=== PATIENT | female | born 1985 | race Caucasian/White ===

== ENCOUNTER 2017-07-05 10:56 | Emergency (ER) | payer OTHER ==
[2017-07-05] MEDS ORDERED: ONDANSETRON 4 MG/2 ML VIAL IVP ONE (11:21)
[2017-07-05] MEDS ORDERED: NS 1,000 ML IV ONE (11:21)
[2017-07-05] MEDS ORDERED: HYOSCYAMINE SULFATE 0.125 MG TAB PO ONE (11:21)
[2017-07-05] MEDS ORDERED: MAG HYDROX/AL HYDROX/SIMETH 30 ML UDCUP PO ONE (11:21)
[2017-07-05] MEDS ORDERED: LIDOCAINE 2% VISCOUS 15 ML UDCUP PO ONE (11:21)
--- NOTE | 2017-07-05 11:21 | EDPHY ---
H & P Stated Complaint: hx ulcer increasing n/v epigstric pain over last few weeks Time Seen by Provider: 07/05/17 11:06 HPI/ROS: CHIEF COMPLAINT: Epigastric pain HISTORY OF PRESENT ILLNESS: The patient presents to the ED with a 1 day history of epigastric pain she attributes to peptic ulcer disease. She was diagnosed with this condition clinically several years ago. She did not undergo endoscopy. She has been having some mild symptoms of dyspepsia and epigastric pain over the past several weeks. The patient reports she developed several episodes of vomiting over the past 12 hours. There is no hematemesis. The patient is not had a history of melena. The patient complains of mild ongoing epigastric pain. REVIEW OF SYSTEMS: A comprehensive 10 point review of systems is otherwise negative aside from elements mentioned in the history of present illness. Source: Patient Exam Limitations: No limitations - Personal History LMP (Females 10-55): 15-21 Days Ago Current Tetanus/Diphtheria Vaccine: Unsure - Medical/Surgical History Hx Asthma: No Hx Chronic Respiratory Disease: No Hx Diabetes: No Hx Cardiac Disease: No Hx Renal Disease: No Hx Cirrhosis: No Hx Alcoholism: No Hx HIV/AIDS: No Hx Splenectomy or Spleen Trauma: No Other PMH: ulcer - Social History Smoking Status: Never smoked - Physical Exam Exam: General Appearance: Alert, no distress Eyes: Pupils equal and round no pallor or injection ENT, Mouth: Mucous membranes moist Respiratory: There are no retractions, lungs are clear to auscultation Cardiovascular: Regular rate and rhythm Gastrointestinal: Minimal epigastric tenderness to palpation Neurological: A&O, normal motor function, normal sensory exam, normal cranial nerves Skin: Warm and dry, no rashes Musculoskeletal: Neck is supple nontender Extremities: symmetrical, full range of motion Constitutional: Initial Vital Signs Temperature (C) 36.5 C 07/05/17 10:59 Heart Rate 94 07/05/17 10:59 Respiratory Rate 18 07/05/17 10:59 Blood Pressure 135/98 H 07/05/17 10:59 O2 Sat (%) 96 07/05/17 10:59 O2 Delivery Mode Room Air Allergies/Adverse Reactions: acetaminophen Allergy (Verified 07/05/17 10:58) codeine Allergy (Verified 07/05/17 10:58) Home Medications: Medication Instructions Recorded Ondansetron Odt [Zofran Odt] 4 mg PO Q4PRN PRN #20 tab 07/05/17 Medical Decision Making ED Course/Re-evaluation: The patient presents to the ED with minimal epigastric pain. The patient's laboratory studies are within normal limits her vital signs are stable. Her abdominal examination is reassuring. The patient was given a GI cocktail in the emergency department. Review of her laboratory studies demonstrate no evidence of hepatitis, pancreatitis, significant leukocytosis or . Urinalysis does demonstrate hematuria although the patient has no complaints of flank pain or symptoms suggestive of nephrolithiasis. Patient was re-evaluated at 12:00 p.m. She is feeling much better. Her abdominal pain is entirely resolved. Patient will be referred to our on-call primary care provider and hand spring repairer. She has been informed of the presence of asymptomatic microscopic hematuria and will have a repeat urinalysis performed through primary care in the next month. The patient is discharged home with customary aftercare instructions and return precautions. She will be given a prescription for Zofran. She is advised to begin ranitidine 150 mg twice daily. Differential Diagnosis: Differential diagnosis considered includes peptic ulcer disease, gastritis, dehydration, pancreatitis, cholecystitis, urinary tract infection, ectopic - Data Points Laboratory Results: Laboratory Results 07/05/17 11:15 07/05/17 11:15 07/05/17 07/05/17 07/05/17 11:15 11:15 11:15 WBC RBC Hgb Hct MCV MCH MCHC RDW Plt Count MPV Neut % (Auto) Lymph % (Auto) Russell % (Auto) Eos % (Auto) Baso % (Auto) Nucleat RBC Rel Count Absolute Neuts (auto) Absolute Lymphs (auto) Absolute Monos (auto) Absolute Eos (auto) Absolute Basos (auto) Absolute Nucleated RBC Immature Gran % Immature Gran # Sodium 141 mEq/L mEq/L (134-144) Potassium 4.1 mEq/L mEq/L (3.5-5.2) Chloride 104 mEq/L mEq/L (97-110) Carbon Dioxide 23 mEq/l mEq/l (22-31) Anion Gap 14 mEq/L mEq/L (8-16) BUN 10 mg/dL mg/dL (7-23) Creatinine 0.7 mg/dL mg/dL (0.6-1.0) Estimated GFR > 60 Glucose 85 mg/dL mg/dL (70-100) Calcium 9.5 mg/dL mg/dL (8.5-10.4) Total Bilirubin 0.5 mg/dL mg/dL (0.1-1.4) Conjugated Bilirubin 0.1 mg/dL mg/dL (0.0-0.5) Unconjugated Bilirubin 0.4 mg/dL mg/dL (0.0-1.1) AST 22 IU/L IU/L (14-46) ALT 33 IU/L IU/L (9-52) Alkaline Phosphatase 65 IU/L IU/L (38-126) Total Protein 7.0 g/dL g/dL (6.3-8.2) Albumin 4.4 g/dL g/dL (3.5-5.0) Lipase 87 IU/L IU/L (23-300) Beta HCG, Qual NEGATIVE Urine Color YELLOW Urine Appearance TURBID Urine pH 7.0 (5.0-7.5) Ur Specific Story 1.020 (1.002-1.030) Urine Protein NEGATIVE (NEGATIVE) Urine Ketones NEGATIVE (NEGATIVE) Urine Blood NEGATIVE (NEGATIVE) Urine Nitrate NEGATIVE (NEGATIVE) Urine Bilirubin NEGATIVE (NEGATIVE) Urine Urobilinogen NEGATIVE EU EU (0.2-1.0) Ur Leukocyte Esterase 1+ H (NEGATIVE) Urine RBC 25-50 /hpf H /hpf (0-3) Urine WBC Not Reported Ur Epithelial Cells TRACE /lpf /lpf (NONE-1+) Urine Mucus TRACE /lpf /lpf (NONE-1+) Urine Glucose NEGATIVE (NEGATIVE) 07/05/17 11:15 WBC 8.19 10^3/uL 10^3/uL (3.80-9.50) RBC 4.06 10^6/uL L 10^6/uL (4.18-5.33) Hgb 13.5 g/dL g/dL (12.6-16.3) Hct 38.5 % % (38.0-47.0) MCV 94.8 fL fL (81.5-99.8) MCH 33.3 pg pg (27.9-34.1) MCHC 35.1 g/dL g/dL (32.4-36.7) RDW 12.1 % % (11.5-15.2) Plt Count 243 10^3/uL 10^3/uL (150-400) MPV 9.7 fL fL (8.7-11.7) Neut % (Auto) 59.8 % % (39.3-74.2) Lymph % (Auto) 30.2 % % (15.0-45.0) Russell % (Auto) 8.3 % % (4.5-13.0) Eos % (Auto) 1.1 % % (0.6-7.6) Baso % (Auto) 0.5 % % (0.3-1.7) Nucleat RBC Rel Count 0.0 % % (0.0-0.2) Absolute Neuts (auto) 4.90 10^3/uL 10^3/uL (1.70-6.50) Absolute Lymphs (auto) 2.47 10^3/uL 10^3/uL (1.00-3.00) Absolute Monos (auto) 0.68 10^3/uL 10^3/uL (0.30-0.80) Absolute Eos (auto) 0.09 10^3/uL 10^3/uL (0.03-0.40) Absolute Basos (auto) 0.04 10^3/uL 10^3/uL (0.02-0.10) Absolute Nucleated RBC 0.00 10^3/uL 10^3/uL (0-0.01) Immature Gran % 0.1 % % (0.0-1.1) Immature Gran # 0.01 10^3/uL 10^3/uL (0.00-0.10) Sodium Potassium Chloride Carbon Dioxide Anion Gap BUN Creatinine Estimated GFR Glucose Calcium Total Bilirubin Conjugated Bilirubin Unconjugated Bilirubin AST ALT Alkaline Phosphatase Total Protein Albumin Lipase Beta HCG, Qual Urine Color Urine Appearance Urine pH Ur Specific Story Urine Protein Urine Ketones Urine Blood Urine Nitrate Urine Bilirubin Urine Urobilinogen Ur Leukocyte Esterase Urine RBC Urine WBC Ur Epithelial Cells Urine Mucus Urine Glucose Medications Given: Discontinued Medications Al Hydroxide/Mg Hydroxide (Maalox Susp) 30 ml PO ONCE ONE Stop: 07/05/17 11:22 Last Admin: 07/05/17 11:27 Dose: 30 ml Hyoscyamine Sulfate (Levsin, Hyomax-Sl) 0.25 mg PO ONCE ONE Stop: 07/05/17 11:22 Last Admin: 07/05/17 11:26 Dose: 0.25 mg Sodium Chloride (Ns) 1,000 mls @ 0 mls/hr IV EDNOW ONE; Wide Open PRN Reason: Protocol Stop: 07/05/17 11: Last Admin: 07/05/17 11:26 Dose: 1,000 mls Lidocaine (Lidocaine 2% Viscous) 15 ml PO ONCE ONE Stop: 07/05/17 11:22 Last Admin: 07/05/17 11:27 Dose: 15 ml Ondansetron HCl (Zofran) 4 mg IVP EDNOW ONE Stop: 07/05/17 11: Last Admin: 07/05/17 11:29 Dose: 4 mg Departure - Departure Disposition: Home, Routine, Self-Care Clinical Impression: Dyspepsia Condition: Good Instructions: Indigestion (ED) Additional Instructions: 1. Zofran as needed for nausea. 2. Please use Zantac 150 mg twice a day. This is available [email or web address]. 3. Please return to the ED for markedly worsening symptoms, vomiting of blood, tarry stools, worsening abdominal pain or other concerns. 4. Please follow up with the primary care provider, Dr. Sellers, you have been referred to to establish care. If you continue to have ongoing symptoms evaluation by Gastroenterology may be indicated. You have also been given the number of our on-call hand spring repairer, Dr. Marie. 5. Please have your urine recheck for microscopic blood in the next 2-4 weeks. Referrals: Edna Sellers MD [Medical Doctor] - As per Instructions Alycia Marie MD [Medical Doctor] - As per Instructions
[2017-07-05 11:25] LABS: % IMMATURE GRANULYOCYTES 0.1 % (0.0-1.1); ABSOLUTE IMMATURE GRANULOCYTES 0.01 10^3/uL (0.00-0.10); ADD DIFF? NO; ADD MORPH? NO; ADD SCAN? NO; ATYPICAL LYMPHOCYTE FLAG 0 (0-99); FRAGMENT RBC FLAG 0 (0-99); HEMATOCRIT 38.5 % (38.0-47.0); HEMOGLOBIN 13.5 g/dL (12.6-16.3); LEFT SHIFT FLG 0 (0-99); LIPEMIA HEMOLYSIS FLAG 90 (0-99); MEAN CELL HEMOGLOBIN 33.3 pg (27.9-34.1); MEAN CELL HEMOGLOBIN CONCENTR. 35.1 g/dL (32.4-36.7); MEAN CELL VOLUME 94.8 fL (81.5-99.8); MEAN PLATELET VOLUME 9.7 fL (8.7-11.7); PLATELET CLUMPS FLAG 10 (0-99); PLATELET COUNT 243 10^3/uL (150-400); RED BLOOD CELL COUNT 4.06 10^6/uL (4.18-5.33); RED CELL DISTRIBUTION WIDTH 12.1 % (11.5-15.2)
[2017-07-05 11:27] LABS: COLOR YELLOW; LEUKOCYTE ESTERASE,URINE 1+ (NEGATIVE); NITRITE,URINE NEGATIVE (NEGATIVE)
[2017-07-05 11:39] LABS: ALANINE AMINOTRANSFERASE 33 IU/L (9-52); ALBUMIN 4.4 g/dL (3.5-5.0); ALKALINE PHOSPHATASE 65 IU/L (38-126); ANION GAP 14 mEq/L (8-16); ASPARTATE AMINOTRANSFERASE 22 IU/L (14-46); BILIRUBIN,TOTAL 0.5 mg/dL (0.1-1.4); BILIRUBIN-CONJUGATED 0.1 mg/dL (0.0-0.5); BILIRUBIN-UNCONJUGATED 0.4 mg/dL (0.0-1.1); CALCIUM 9.5 mg/dL (8.5-10.4); CARBON DIOXIDE 23 mEq/l (22-31); CHLORIDE 104 mEq/L (97-110); CREATININE 0.7 mg/dL (0.6-1.0); GLOMERULAR FILTRATION RATE > 60; GLUCOSE 85 mg/dL (70-100); POTASSIUM 4.1 mEq/L (3.5-5.2); SODIUM 141 mEq/L (134-144)
[2017-07-05 11:49] LABS: MUCUS TRACE /lpf (NONE-1+); RBC,URINE 25-50 /hpf (0-3)
[2017-07-05 12:55] VITALS: BP 110/83; PULSE 69; RESP 16; TEMP 98.2; O2SAT 95
== END 2017-07-05 12:40 | disposition home or self-care (01) ==
DX: R10.13 Epigastric pain (principal); E86.9 Volume depletion, unspecified
CPT/HCPCS: 96374; J2405